=== PATIENT | female | born 2000 | race Hispanic/Latino ===

== ENCOUNTER 2025-03-30 11:50 | Emergency (ER) | payer SELFPAY ==
--- OUTSIDE RECORDS SUMMARY | 2025-03-30 11:55 | XMS REPORT | Continuity of Care Document ---
Author Name Unknown Address [address] [facility] [place] [address] [facility] Address [address] [facility] [address] [place] [address] Care Team Providers Care Construction Supervisor Name Role Phone NONE, NONE Primary Care Physician Unavailab Sparks, DR MENA Attending Clinician Unavailab Sparks, DR MENA Attending Clinician Unavailab CEDRIC Mehta Attending Clinician Unavailable CEDRIC SONG Attending Clinician [phone] ELAINE MOLINA Attending Clinician Unavailable ELAINE MOLINA Attending Clinician [phone] MALISSA CHIANG Attending Clinician UnavailCIRA Mccoy Attending Clinician Unavailable NELLY, DR MALISSA García Attending Clinician Unavail able NELLY, DR MALISSA García Attending Clinician Unavail able ALISON, DR BAILEY Attending Clinician Unavailable ALISON, DR BAILEY Attending Clinician Unavailable DR JOSÉ OKEEFE Attending Clinician Unavaila amalia GUAJARDO, DR Mary CORADO Attending Clinician Ruby NAVARRO, DR COLBY Attending Clinician Unavailable TROY, DR CSOOBY GO Attending Clinici fred GILMORE, DR DANNY THAKKAR Attending Clinician Unakasey MUKHERJEE, DR DOWNING Attending Clinician Unavailable GOLDEN, DR VALDEZ Attending Clinician Unavailable RONALDO, DR CARMONA Attending Clinician Unavailable DILLAN, DR MEDINA Attending Clinician Unavailable DR TRINA CLINTON Admitting Clinician Unavailab DR MALISSA Burch Admitting Clinician UnavailDR MALISSA Serna Admitting Clinician Unavail able ALISON, DR BAILEY Admitting Clinician Unavailable MALDONADO, DR JOSÉ Royal Admitting Clinician Unavailjose daniel GUAJARDO, DR Mary CORADO Admitting Clinician Ruby NAVARRO, DR COLBY Admitting Clinician Unavailable TROY, DR SCOOBY GO Admitting Clinici an Unavailable GILMORE, DR DANNY THAKKAR Admitting Clinician Marielos MUKHERJEE, DR DOWNING Admitting Clinician Unavailable BA, DR VALDEZ Admitting Clinician Unavailable RONALDO, DR CARMONA Admitting Clinician Unavailable DILLAN, DR MEDINA Admitting Clinician Unavailable Payers Payer Name Policy Type Policy Number Effective Date Expirati on Date Source 1000 [id number] 2025 00:00:00 0775 [id number] 2022 00:00:00 Allergies, Adverse Reactions, Alerts Allergy Name Allergy Type Status Severity Reaction(s) Onset Date Inactive Date Treating Clinician Comments Source NKDA DA Active Unknown 02-25 00:00: 00 [facility] No Known Allergie s DA Active [facility] ALLERGIE S NOT ON FILE SYSTEMIC Active MHEOUT ALLERGIE S NOT ON FILE SYSTEMIC Active MHEOUT ALLERGIE S NOT ON FILE SYSTEMIC Active MHEOUT Family History Family Member Diagnosis Comments Start Date Stop Date Sourc e Mother Hypertension 2024-05-09 00:00:00 11-21-24 00:00:00 [facility] Social History Social Habit Start Date Stop Date Quantity Comments Source Health-related Behavior 2024-05-17 00:00:00 [facility] Tobacco use and exposure (observable entity) 2024-05-09 00:00:00 : No Details Available Quantity Details - : No Details Available [facility] intake [facility] Smoking Status Start Date Stop Date Source Unknown if ever smoked [facility] Medications Ordered Medication Name Filled Medication Name Start Date Stop Date Current Medication? Ordering Clinician Indication Dosage Frequency Signature (SIG) Comments Components Source norethindro ne (contracept shahrzad) 0.35 mg tablet 09-20 00:00: 00 No 1{table t} Q1D take 1 tablet by oral route every day [facility] metronidazo le 500 mg tablet 2023-08 0 00:00: 00 06-13 00:00 :00 No 1{table t} Q12H take 1 tablet by oral route every 12 hours [facility] metronidazo le 500 mg tablet 05-09 00:00: 00 05-15 00:00 :00 No 1{table t} Q12H take 1 tablet by oral route every 12 hours [facility] Vital Signs Vital Name Observation Time Observation Value Comments S ource Height 2025-02-04 10:50:00 152.4 CM Weight 2025-02-04 10:50:00 56 KG Height 2025-02-04 10:50:00 152.4 CM Weight 2025-02-04 10:50:00 56 KG Height 2025-02-04 10:50:00 152.4 CM Weight 2025-02-04 10:50:00 56 KG Body height 2024-05-09 14:56:00 149.86 cm [facility] Body Weight 2024-05-09 14:56:00 55.883 kg [facility] Systolic 2024-05-09 14:56:00 107 mm[Hg] [facility] Diastolic 2024-05-09 14:56:00 73 mm[Hg] [facility] Heart Rate 2024-05-09 14:56:00 81 /min [facility] Body Temperature 2024-05-09 14:56:00 36.39 Aleksandra [facility] Respiratory rate 2024-05-09 14:56:00 18 /min [facility] Body mass index 2024-05-09 14:56:00 24.88 kg/m2 [facility] SaO2 % BldA PulseOx 2024-05-09 14:56:00 98 /min [facility] Height 2023-07-06 02:25:00 149.86 CM Weight 2023-07-06 02:25:00 60.2 KG Height 2023-06-26 17:40:00 149.86 CM Weight 2023-06-26 17:40:00 59 KG Height 2023-06-26 17:40:00 149.86 CM Weight 2023-06-26 17:40:00 59 KG Height 2022-11-30 13:29:00 157.48 CM Weight 2022-11-30 13:29:00 120 KG Weight 2022-08-23 06:13:00 55.33 KG Height 2022-06-17 20:48:00 149.86 CM Weight 2022-06-17 20:48:00 52.16 KG Height 2021-02-13 16:47:00 149.86 CM Weight 2021-02-13 16:47:00 52.61 KG Height 2020-02-11 05:08:00 149.86 CM Weight 2020-02-11 05:08:00 63.04 KG Weight 2019-08-28 23:07:00 48.65 KG Height 2019-08-28 23:07:00 149.86 [facility] Systolic 2024-09-20 07:55:00 104 mm[Hg] [facility] Diastolic 2024-09-20 07:55:00 68 mm[Hg] [facility] Heart Rate 2024-09-20 07:55:00 90 /min [facility] Body mass index 2024-09-20 07:55:00 26.09 kg/m2 [facility] Body height 2024-09-20 07:55:00 149.86 cm [facility] Body Weight 2024-09-20 07:55:00 58.604 kg [facility] Body height 2024-06-07 15:32:00 149.86 cm [facility] Body Weight 2024-06-07 15:32:00 56.699 kg [facility] Systolic 2024-06-07 15:32:00 107 mm[Hg] [facility] Diastolic 2024-06-07 15:32:00 72 mm[Hg] [facility] Heart Rate 2024-06-07 15:32:00 89 /min [facility] Body Temperature 2024-06-07 15:32:00 36.22 Aleksandra [facility] Respiratory rate 2024-06-07 15:32:00 18 /min [facility] Body mass index 2024-06-07 15:32:00 25.25 kg/m2 [facility] SaO2 % BldA PulseOx 2024-06-07 15:32:00 98 /min [facility] Body height 2024-05-09 14:56:00 149.86 cm [facility] Body Weight 2024-05-09 14:56:00 55.883 kg [facility] Systolic 2024-05-09 14:56:00 107 mm[Hg] [facility] Diastolic 2024-05-09 14:56:00 73 mm[Hg] [facility] Heart Rate 2024-05-09 14:56:00 81 /min [facility] Body Temperature 2024-05-09 14:56:00 36.39 Aleksandra [facility] Respiratory rate 2024-05-09 14:56:00 18 /min [facility] Body mass index 2024-05-09 14:56:00 24.88 kg/m2 [facility] SaO2 % BldA PulseOx 2024-05-09 14:56:00 98 /min [facility] Procedures Procedure Date / Time Performed Performing Clinician Source PT-FOCUSED HLTH RISK ASSMT 2024-09-20 00:00:00 [facility] URINE TEST 2024-06-07 00:00:00 [facility] OFFICE/OUTPATIENT VISIT EST 2024-06-07 00:00:00 [facility] SYST BP LT 130 MM HG 2024-06-07 00:00:00 [facility] DIAST BP <80 MM HG 2024-06-07 00:00:00 [facility] CURRENT TOBACCO SMOKER 2024-06-07 00:00:00 [facility] WEIGHT RECORD 2024-06-07 00:00:00 [facility] BODY MASS INDEX DOCD 2024-06-07 00:00:00 [facility] CYTOPATH C/V AUTO FLUID REDO 2024-05-09 00:00:00 [facility] PREV VISIT NEW AGE 18-39 2024-05-09 00:00:00 [facility] URINE TEST 2024-05-09 00:00:00 [facility] PREV VISIT NEW AGE 18-39 2024-05-09 00:00:00 [facility] URINE TEST 2024-05-09 00:00:00 [facility] ACUTE HEPATITIS PANEL 2024-05-09 00:00:00 [facility] TRICHOMONAS VAGIN DIR PROBE 2024-05-09 00:00:00 [facility] SYPHILIS TEST NON-TREP QUAL 2024-05-09 00:00:00 [facility] HIV-1 AG W/HIV-1 & HIV-2 AB 2024-05-09 00:00:00 [facility] DELIVERY PRODUCTS OF CONCEPTION EXT 2020-02-11 00:00:00 [facility] REPAIR PERINEUM MUSCLE OPEN 2020-02-11 00:00:00 [facility] DRAIN AMNIO FLUID TX POC MILVIA/ART OP 2020-02-11 00:00:00 [facility] Encounters Start Date/Time End Date/Time Encounter Type Admission Type Attending Clinicians Care Facility Care Department Encounter ID Source 2025-02-04 10:49:00 2025-02-04 14:17:00 Outpatient [facility] [id number] [facility] 2025-02-04 10:49:00 2025-02-04 14:17:00 [facility] [id number] [facility] 2025-02-04 10:49:00 2025-02-04 10:49:00 [facility] [id number] [facility] 2024-10-26 13:33:00 2024-10-26 13:33:00 Outpatient CEDRIC SONG [facility] [id number] [facility] 2024-10-26 13:33:00 2024-10-26 13:33:00 Outpatient CEDRIC SONG [facility] [id number] [facility] 2024-09-20 07:45:00 2024-09-20 07:45:00 Outpatient CEDRIC SONG [facility] [id number] [facility] 2024-09-20 07:45:00 2024-09-20 07:45:00 Outpatient CEDRIC SONG [facility] [id number] [facility] 2024-06-07 15:45:00 2024-06-07 15:45:00 Outpatient ELAINE MOLINA [facility] [id number] [facility] 2024-06-07 15:45:00 2024-06-07 15:45:00 OFFICE/OUT PATIENT VISIT EST ELAINE MOLINA [facility] [id number] [facility] 2024-05-31 16:22:00 2024-05-31 16:22:00 Outpatient ELAINE MOLINA [facility] [id number] [facility] 2024-05-31 16:22:00 2024-05-31 16:22:00 Outpatient ELAINE MOLINA [facility] [id number] [facility] 2024-05-29 08:42:00 2024-05-29 08:42:00 Outpatient ELAINE MOLINA [facility] [id number] [facility] 2024-05-29 08:42:00 2024-05-29 08:42:00 Outpatient ELAINE MOLINA [facility] [id number] [facility] 2024-05-17 07:28:00 2024-05-17 07:28:00 Outpatient ELAINE MOLINA [facility] [id number] [facility] 2024-05-17 07:28:00 2024-05-17 07:28:00 Outpatient ELAINE MOLINA [facility] [id number] [facility] 2024-05-09 14:45:00 2024-05-09 14:45:00 Outpatient ELAINE MOLINA [facility] [id number] [facility] 2024-05-09 14:45:00 2024-05-09 14:45:00 PREV VISIT NEW AGE 18-39 ELAINE MOLINA [facility] [id number] [facility] 2024-03-01 17:31:00 2024-03-01 17:31:00 Emergency E [facility] [id number] [facility] 2024-02-28 14:45:14 2024-02-28 15:21:26 Outpatient Elective [facility] [id number] [id number] 2023-07-06 02:53:00 2023-07-06 02:53:00 Emergency E MALISSA [facility]AS [facility] [id number] [facility] 2023-06-26 17:36:00 2023-06-26 20:13:00 Emergency E UDU, LYNN ROSAS, LYNN [facility] [id number] [facility] 2023-06-26 17:36:00 2023-06-26 20:13:00 Emergency E LYNN ROSAS [facility] [id number] [facility] 2022-11-30 13:21:00 2022-11-30 15:01:00 Emergency E JOSÉ OKEEFE [facility] [id number] [facility] 2022-08-23 04:34:00 2022-08-23 06:40:00 Emergency E Mary GUAJARDO [facility] [id number] [facility] 2022-06-17 19:33:00 2022-06-17 22:47:00 Emergency E LASHA NAVARRO [facility] [id number] [facility] 2021-02-13 16:47:00 2021-02-13 19:00:00 Emergency E SCOOBY SIMMONS [facility] [id number] [facility] 2020-02-11 05:00:00 2020-02-13 11:50:00 Inpatient C DANNY GILMORE [facility] [id number] [facility] 2019-08-28 22:52:00 2019-08-29 00:05:00 [facility] [id number] [facility] 2019-07-11 13:05:00 2019-07-12 15:20:00 Emergency E SALINA MUKHERJEE [facility] [id number] [facility] 2019-05-15 06:10:00 2019-05-15 07:39:00 Emergency E JOSÉ MIGUEL FRANKS [facility] [id number] [facility] 2017-11-07 08:32:00 2017-11-07 10:00:00 Emergency E KRISTINE HIGGINS [facility] [id number] [facility] 2017-08-12 08:18:00 2017-08-12 11:58:00 Emergency E ADAM GRIMALDO [facility] [id number] [facility] Results Test Description Test Time Test Comments Results Result Co mments Source CPK *WW*2025-02-04 12:01:00* Test Item Value Reference Range Interpretation Comme nts CPK (test code = 32A) 127 IU/L 34-145 LIPASE SERUM WW2025-02-04 12:01:00* Test Item Value Reference Range Interpretation Comme nts LIPASE (test code = 60A) 32 IU/L 12-53 URINALYSIS WITH MICRO *WW*2025-02-04 11:52:00* Test Item Value Reference Range Interpretation Comme nts COLOR (test code = COLU) DK YELLOW YELLOW A CLARITY (test code = CLA) TURBID CLEAR A GLUCOSE UR (test code = UA GLUCOSE) NEGATIVE NEGATIVE BILI UR (test code = BILE) 1+ NEGATIVE A KETONES UR (test code = FRANCIE) 2+ NEGATIVE A SP GRAVITY (test code = SPGR) 1.059 1.005-1.030 H PH UR (test code = PH) 6.5 4.5-8.0 PROTEIN UR (test code = PU) 3+ NEGATIVE A UROBIL UR (test code = UROQ) 1.0 EU/dL 0.2-1.0 NITRITE UR (test code = NITRITE) NEGATIVE NEGATIVE BLOOD UR (test code = UA BLOOD) 3+ NEGATIVE A LEUK ES UR (test code = LEUK) 1+ NEGATIVE A WBC UR (test code = UWBC) 4 /HPF 0-5 RBC UR (test code = URBC) >100 /HPF 0-2 H EPITH UR (test code = UEPC) FEW /LPF FEW BACTERIA UR (test code = UBACT) FEW /HPF NONE A CAST UR (test code = CAST) /LPF NONE CRYSTAL UR (test code = CRYU) / LPF NONE MUCUS UR (test code = MUC) / HPF NONE AMORPH UR (test code = AISHA) / HPF NONE TRICH UR (test code = UTRICH) /HPF NONE YEAST UR (test code = UY) /HPF NONE SPERM UR (test code = USPERM) /HPF NONE URINE MONOCLONAL 2025-02-04 11:49:00* Test Item Value Reference Range Interpretation Comme nts PREG UR (test code = PGU) NEGATIVE NEGATIVE CBC (INCLUDES AUTOMATED DIFFERENTIAL)*[id number] 11:47:00* Test Item Value Reference Range Interpretation Comme nts WBC (test code = WBC) 10.6 10\S\3/uL 4.5-11.0 RBC (test code = RBC) 3.98 10\S\6/uL 4.30-5.70 L HGB (test code = HBG) 11.7 g/dL 12.0-15.5 L HCT (test code = HCT) 35.0 % 35.0-44.0 MCV (test code = MCV) 87.9 fL 81.0-99.0 MCH (test code = MCH) 29.4 pg 27.0-31.0 MCHC (test code = MCHC) 33.4 g/dL 32.0-36.0 RDW (test code = RDW) 12.5 % 11.5-14.5 PLT (test code = PLT) 322 10\S\3/uL 130-400 MPV (test code = MPV) 9.9 fL 9.4-12.4 NEUTROP # (test code = NE#) 6.6 10\S\3/uL 1.6-8.0 LYMPH # (test code = LY#) 3.1 10\S\3/uL 1.1-3.5 MONOCYTE # (test code = MO#) 0.7 10\S\3/uL 0.0-1.1 EOSINOPH # (test code = EO#) 0.1 10\S\3/uL 0.0-0.7 BASOPHIL # (test code = BA#) 0.0 10\S\3/uL 0.0-0.3 IG # (test code = IG#) 0.03 10\S\3/uL 0.00-0.06 NRBC # (test code = NRBC#) 0.00 10\S\3/uL 0.00-0.01 NEUTROPH % (test code = NE%) 62.7 % 35.0-73.0 LYMPH % (test code = LY%) 29.2 % 20.0-55.0 MONO % (test code = MO%) 6.5 % 2.5-10.0 EOSINOPH % (test code = EO%) 0.9 % 0.0-5.0 BASOPHIL % (test code = BA%) 0.4 % 0.0-2.0 IG % (test code = IG%) 0.3 % 0.0-0.8 NRBC% (test code = NRBC%) 0.0 % 0.0-0.2 MANDIFF (test code = WMDIFF) NO NO RBC MORPH (test code = WRBCMOR) NORMAL Panel Description: IGP, CtNg, rfx Aptima HPV [id number] 19:08:00* Test Item Value Reference Range Interpretation Comme [facility] (test code = 49548-2) RNILM,RECR NEGATIVE FOR INT RAEPITHELIAL LESION OR MALIGNANCY.REACTIVE CELLULAR CHANGES AND/OR REPAIR ARE PRESENT.Performed by:[facility] Cytology (;T) PERFOR (test code = 36757-8) Comment Stephanie Salazar, Client Analyst (ASCP)Performed by:[facility] Cytology (;T) SIGNED (test code = ) Comment Art Arredondo MD, PathologistPerformed by:[facility] Cytology (;T) IGLBP (test code = 26603-0) TNP The Thin Prep(R) Advertising Editor was unable to read this specimen. Thereforea manual review was performed.Performed by:[facility] Cytology (;T) Chlamydia, Nuc. Acid Amp (test code = 43559-9) Negative Negative Gonococcus, Nuc. Acid Amp (test code = 27177-5) Negative Negative [facility] Description: Vaginitis/Vaginosis, DNA [id number] 18:02:00 * Test Item Value Reference Range Interpretation Comme nts Katharina species (test code = 45237-6) Negative Negative Gardnerella vaginalis (test code = 6410-5) Positive Negative A Trichomonas vaginalis (test code = 6568-0) Negative Negative [facility] Description: NuSwab VG, [id number] 04:47:00* Test Item Value Reference Range Interpretation Comme nts Atopobium vaginae (test code = 32130-6) Moderate - 1 BVAB 2 (test code = 25434-5) Low - 0 Megasphaera 1 (test code = 27434-7) Low - 0 Calculate total score by adding the 3 individual bacterialvaginosis (BV) marker scores together. Total score isinterpreted as follows:Total score 0-1: Indicates the absence of BV.Total score 2: Indeterminate for BV. Additional clinical data should be evaluated to establish a diagnosis.Total score 3-6: Indicates the presence of BV.Performed by:[facility] [place] ([facility]) Katharina albicans, MARISOL (test code = 99864-2) Negative Negative Katharina glabrata, MARISOL (test code = 51349-1) Negative Negative Trich vag by MARISOL (test code = 60633-3) Negative Negative HSV 1 MARISOL (test code = 07740-8) Negative Negative HSV 2 MARISOL (test code = 19744-2) Negative Negative [facility] Description: Acute hepatitis 2000 panel - [id number] 08:47:00* Test Item Value Reference Range Interpretation Comme nts Hep A Ab, IgM (test code = 85934-5) Negative Negative A negative anti- HAV IgM result suggests no recent or currentHAV infection.Performed by:Christina Dozier (HD) HBsAg Screen (test code = 5196-1) Negative Negative Hep B Core Ab, IgM (test code = 68551-9) Negative Negative HCV Ab (test code = 88492-8) Non Reactive Non Reactive [facility] Description: Interpretation:2024-05-10 08:47:00* Test Item Value Reference Range Interpretation Comme nts Interpretation: (test code = 03327-1) Comment Not infected wit h HCV unless early or acute infection issuspected (which may be delayed in an immunocompromisedindividua l), or other evidence exists to indicate HCV infection.Performed by:[facility] () [facility] Description: RPR, Rfx Qn RPR/Confirm [id number] 08:13:00* Test Item Value Reference Range Interpretation Comme nts RPR (test code = 34902-2) Non Reactive Non Reactive [facility] CHLAMYDIA EXAM *WW*2024-03-05 09:34:00* Test Item Value Reference Range Interpretation Comme nts CHLAMYDIA TRACHOMATIS (test code = 36699530) DETECTED NOT DETECTED A If results do n ot correlate with clinical findings,testing using an alternate molecular target whichamplifies different genetic sequences can beperformed on the same sample for result confirmationwithin 7 days of sample receipt or per performinglaboratory specimen retention policy. Alternatetarget testing is available; 48163 (C. trachomatis)or 15794 (N. gonorrhoeae). NEISSERIA GONORRHOEAE (test code = 73989247) NOT DETECTED NOT DETECTED Endnote (test code = 30309828) The analytical performance characteristics of thisassay, when used to test SurePath(TM) specimens have beendetermined by [employer]. The modifications havenot been cleared or approved by the FDA. This assay hasbeen validated pursuant to the CLIA regulations and isused for clinical purposes.For additional information, please refer tohttps://education.[employer].com/faq/FAQ15 4(This link is being provided for information/educational purposes only.)TEST PERFORMED AT:[facility] [employer] [address] [address] Eliz HAYNES M.D. URINALYSIS WITH MICRO *WW*2024-03-01 18:16:00* Test Item Value Reference Range Interpretation Comme nts COLOR (test code = COLU) YELLOW YELLOW CLARITY (test code = CLA) SLT HAZY CLEAR A GLUCOSE UR (test code = UA GLUCOSE) NEGATIVE NEGATIVE BILI UR (test code = BILE) NEGATIVE NEGATIVE KETONES UR (test code = FRANCIE) NEGATIVE NEGATIVE SP GRAVITY (test code = SPGR) 1.022 1.005-1.030 PH UR (test code = PH) 6.5 4.5-8.0 PROTEIN UR (test code = PU) NEGATIVE NEGATIVE UROBIL UR (test code = UROQ) 1.0 EU/dL 0.2-1.0 NITRITE UR (test code = NITRITE) NEGATIVE NEGATIVE BLOOD UR (test code = UA BLOOD) NEGATIVE NEGATIVE LEUK ES UR (test code = LEUK) 2+ NEGATIVE A WBC UR (test code = UWBC) 5 /HPF 0-5 RBC UR (test code = URBC) 2 /HPF 0-2 EPITH UR (test code = UEPC) FEW /LPF FEW BACTERIA UR (test code = UBACT) FEW /HPF NONE A CAST UR (test code = CAST) /LPF NONE CRYSTAL UR (test code = CRYU) / LPF NONE MUCUS UR (test code = MUC) / HPF NONE AMORPH UR (test code = AISHA) / HPF NONE TRICH UR (test code = UTRICH) /HPF NONE YEAST UR (test code = UY) /HPF NONE SPERM UR (test code = USPERM) /HPF NONE URINE MONOCLONAL *WW*2024-03-01 18:08:00* Test Item Value Reference Range Interpretation Comme nts PREG UR (test code = PGU) NEGATIVE NEGATIVE DIRECT STREP GROUP [id number] 14:11:00* Test Item Value Reference Range Interpretation Comme nts Direct Exam (test code = DE3) NEGATIVE FOR STREP A ANTIGEN Isolate 1 (test code = ISO1) BETA HEMOLYTIC STREPTOCOCCUS GROUP A ISOLATED SARS-CoV (RAPID ANTIGEN) [id number] 18:40:00* Test Item Value Reference Range Interpretation Comme nts SARS-CoV (ANTIGEN) (test code = COVAG) NEGATIVE NEGATIVE COVID AG (test code = COVAGC) This test has been marketed under the FDA Emergency Use Authorization (EUA) to meet challenges of the COVID-19 pandemic. The validation standards normally enforced by the FDA and the [employer] [place] [employer] (CAP) are more stringent than those required for this test. Therefore, the result should be interpreted with caution and close attention to other clinical and epidemiological data DIRECT INFLUENZA A AND B [id number] 18:40:00* Test Item Value Reference Range Interpretation Comme nts Direct Exam (test code = DE3) PRESUMPTIVE NEGATIVE FOR THE PRESENCE OF INFLUENZA ANTIGEN SARS-CoV (RAPID ANTIGEN) [id number] 14:56:00* Test Item Value Reference Range Interpretation Comme nts SARS-CoV (ANTIGEN) (test code = COVAG) NEGATIVE NEGATIVE COVID AG (test code = COVAGC) This test has been marketed under the FDA Emergency Use Authorization (EUA) to meet challenges of the COVID-19 pandemic. The validation standards normally enforced by the FDA and the [employer] [place] Path[employer] (CAP) are more stringent than those required for this test. Therefore, the result should be interpreted with caution and close attention to other clinical and epidemiological data DIRECT STREP GROUP [id number] 14:50:00* Test Item Value Reference Range Interpretation Comme nts Direct Exam (test code = DE3) NEGATIVE FOR STREP A ANTIGEN DIRECT INFLUENZA A AND B [id number] 14:49:00* Test Item Value Reference Range Interpretation Comme nts Direct Exam (test code = DE3) PRESUMPTIVE NEGATIVE FOR THE PRESENCE OF INFLUENZA ANTIGEN URINE [id number] 08:50:00* Test Item Value Reference Range Interpretation Comme nts Culture Observations (test code = COB1) THREE OR MORE SPECIES OF BACTERIA ISOLATED. PROBABLE CONTAMINATION. Culture Observations (test code = COB17) IDENTIFICATION AND SUSCEPTIBILITY NOT INDICATED. RECOLLECTION RECOMMENDED Isolate 1 (test code = ISO1) YEAST A URINE MONOCLONAL 2022-08-23 05:53:00* Test Item Value Reference Range Interpretation Comme nts PREG UR (test code = PGU) NEGATIVE NEGATIVE URINALYSIS WITH MICRO 2022-08-23 05:28:00* Test Item Value Reference Range Interpretation Comme nts COLOR (test code = COLU) YELLOW YELLOW CLARITY (test code = CLA) CLOUDY CLEAR A GLUCOSE UR (test code = UA GLUCOSE) NEGATIVE NEGATIVE BILI UR (test code = BILE) NEGATIVE NEGATIVE KETONES UR (test code = FRANCIE) NEGATIVE NEGATIVE SP GRAVITY (test code = SPGR) >=1.030 1.005-1.030 PH UR (test code = PH) 5.5 4.5-8.0 PROTEIN UR (test code = PU) 1+ NEGATIVE A UROBIL UR (test code = UROQ) 0.2 EU/dL 0.2-1.0 NITRITE UR (test code = NITRITE) NEGATIVE NEGATIVE BLOOD UR (test code = UA BLOOD) 2+ NEGATIVE A LEUK ES UR (test code = LEUK) 3+ NEGATIVE A WBC UR (test code = UWBC) 25 /HPF 0-5 H RBC UR (test code = URBC) 5 /HPF 0-2 H EPITH UR (test code = UEPC) MODERATE /LPF FEW A BACTERIA UR (test code = UBACT) MODERATE /HPF NONE A CAST UR (test code = CAST) /LPF NONE CRYSTAL UR (test code = CRYU) / LPF NONE MUCUS UR (test code = MUC) FEW / HPF NONE A AMORPH UR (test code = AISHA) / HPF NONE TRICH UR (test code = UTRICH) /HPF NONE YEAST UR (test code = UY) FEW /HPF NONE A SPERM UR (test code = USPERM) /HPF NONE DIRECT STREP GROUP [id number] 10:48:00* Test Item Value Reference Range Interpretation Comme nts Culture Observations (test code = COB1) NO BETA HEMOLYTIC STREPTOCOCCUS ISOLATED Direct Exam (test code = DE3) NEGATIVE FOR STREP A ANTIGEN SARS-CoV (RAPID ANTIGEN) [id number] 21:25:00* Test Item Value Reference Range Interpretation Comme nts SARS-CoV (ANTIGEN) (test code = COVAG) NEGATIVE NEGATIVE COVID AG (test code = COVAGC) This test has been marketed under the FDA Emergency Use Authorization (EUA) to meet challenges of the COVID-19 pandemic. The validation standards normally enforced by the FDA and the [employer] [place] [employer] (CAP) are more stringent than those required for this test. Therefore, the result should be interpreted with caution and close attention to other clinical and epidemiological data DIRECT INFLUENZA A AND B [id number] 21:20:00* Test Item Value Reference Range Interpretation Comme nts Direct Exam (test code = DE3) POSITIVE FOR INFLUENZA A VIRAL ANTIGEN LIVER [id number] 18:32:00* Test Item Value Reference Range Interpretation Comme nts BILI TOTAL (test code = 11A) 0.3 mg/dL 0.2-1.0 BILI DIRCT (test code = 12A) <0.1 mg/dL 0.0-0.2 PROTEIN (test code = 07D) 8.0 g/dL 6.4-8.2 ALBUMIN (test code = 08D) 4.0 g/dL 3.5-4.8 GLOBULIN (test code = GLB) 4.0 g/dL 1.5-3.8 H ALB/GLOB (test code = AGRR) 1.0 1.0-2.6 ALK PHOS (test code = 35A) 86 IU/L 42-121 AST (test code = 30A) 16 IU/L See_Comment [Automated [employer]acher / [employer] ge] The system which generated this result transmitted reference range: <=42. The reference range was not used to interpret this result as normal/abnormal. ALT (test code = 31A) 25 IU/L See_Comment [Automated [employer]acher / [employer] [facility]] The system which generated this result transmitted reference range: <=78. The reference range was not used to interpret this result as normal/abnormal. U/S <14 [id number] 18:29:22 [facility] : 2000 Sex: FPelvic ultrasoun dHistory: First trimester . Vaginal bleeding.Technique and Findings: Garcia scale, color andpulsed Doppler imaging were utilized. No comparison studies are available.The uterus measures 8.5 x4.4 x 5.3 cm. No definite intrauterine is seen. The endometrium is heterogeneous.The right ovary measures 2.6 x 1.8 x 2.3 cm. The left ovary measures 2.4 x 1.4 x 1.9 cm and demonstrates no f ocal lesions. A normal flow pattern is seen in both ovaries.There is no evidence of free fluid within the pelvis.Impression:Exam findings limited by the absence of transvaginal imaging as patient refused transvaginal imaging.No intrauterine is identified. Recommend correlation with serialbeta hCG and close interval follow-up with sonography to document intrauterine and rule out ectopic.Electronically signed by: Sally Graham MD 02/13/2021 6:29 PM CDT [id number] WITH [id number] 18:13:00* Test Item Value Reference Range Interpretation Comme nts COLOR (test code = COLU) YELLOW YELLOW CLARITY (test code = CLA) CLOUDY CLEAR A GLUCOSE UR (test code = UA GLUCOSE) NEGATIVE NEGATIVE BILI UR (test code = BILE) NEGATIVE NEGATIVE KETONES UR (test code = FRANCIE) NEGATIVE NEGATIVE SP GRAVITY (test code = SPGR) 1.031 1.005-1.030 H PH UR (test code = PH) 6.5 4.5-8.0 PROTEIN UR (test code = PU) TRACE NEGATIVE A UROBIL UR (test code = UROQ) 1.0 EU/dL 0.2-1.0 NITRITE UR (test code = NITRITE) NEGATIVE NEGATIVE BLOOD UR (test code = UA BLOOD) 3+ NEGATIVE A LEUK ES UR (test code = LEUK) 1+ NEGATIVE A WBC UR (test code = UWBC) 6 /HPF 0-5 H RBC UR (test code = URBC) 100 /HPF 0-2 H EPITH UR (test code = UEPC) FEW /LPF FEW BACTERIA UR (test code = UBACT) NONE /HPF NONE CAST UR (test code = CAST) /LPF NONE CRYSTAL UR (test code = CRYU) / LPF NONE MUCUS UR (test code = MUC) / HPF NONE AMORPH UR (test code = AISHA) / HPF NONE TRICH UR (test code = UTRICH) /HPF NONE YEAST UR (test code = UY) /HPF NONE SPERM UR (test code = USPERM) /HPF NONE BETA HCG QUANTITATIVE [id number] 18:02:00* Test Item Value Reference Range Interpretation Comme nts BHCG QUANT (test code = A17) 39.00 mIU/mL BHCGQ (test code = BHCQ) QUANTITATIVE BHCG RESULT INTERPRETATION --- APPROXIMATE APPROXIMATE GESTATIONAL AGE HCG RANGE (WEEKS) (mIU/mL) - 0.2 - 1 5 - 50 1 - 2 50 - 500 2 - 3 100 - 5,000 3 - 4 500 - 10,000 4 - 5 1,000 - 50,000 5 - 6 10,000 - 100,000 6 - 8 15,000 - 200,000 8 - 12 10,000 - 100,000 --- BASIC METABOLIC [id number] 17:57:00* Test Item Value Reference Range Interpretation Comme nts GLUCOSE (test code = 06D) 85 mg/dL 75-100 SODIUM (test code = 01A) 139 mmol/L 136-145 POTASSIUM (test code = 01B) 3.6 mmol/L 3.6-5.1 CHLORIDE (test code = 04A) 104 mmol/L 98-107 CO2 (test code = 02A) 26 mmol/L 22-32 ANION GAP (test code = ANG) 12.6 mmol/L BUN (test code = 05D) 12 mg/dL 7-18 CREATININE (test code = 03E) 0.6 mg/dL 0.4-1.1 GFR (test code = GFR) 129 mL/min/1.73m\S\2 See_Comment [Automated message] The system which generated this result transmitted reference range: >=90. The reference range was not used to interpret this result as normal/abnormal. GFR (test code = GFRAA) 150 mL/min/1.73m\S\2 See_Comment [Automated message] The system which generated this result transmitted reference range: >=90. The reference range was not used to interpret this result as normal/abnormal. EGFR (test code = EGFR) eGFR BY CKD-EPI CALCULATION IS NOT RECOMMENDED FOR PATIENTS UNDER 18 YEARS OF AGE. BUN/CREA (test code = BCR) 20 12-20 CALCIUM (test code = 09D) 9.2 mg/dL 8.3-9.5 CBC (INCLUDES AUTOMATED DIFFERENTIAL)2021-02-13 17:50:00* Test Item Value Reference Range Interpretation Comme nts WBC (test code = WBC) 12.7 10\S\3/uL 4.5-11.0 H RBC (test code = RBC) 4.08 10\S\6/uL 4.30-5.70 L HGB (test code = HBG) 12.2 g/dL 12.0-15.5 HCT (test code = HCT) 36.6 % 35.0-44.0 MCV (test code = MCV) 89.7 fL 81.0-99.0 MCH (test code = MCH) 29.9 pg 27.0-31.0 MCHC (test code = MCHC) 33.3 g/dL 32.0-36.0 RDW (test code = RDW) 12.7 % 11.5-14.5 PLT (test code = PLT) 341 10\S\3/uL 130-400 MPV (test code = MPV) 9.9 fL 9.4-12.4 NEUTROP # (test code = NE#) 8.3 10\S\3/uL 1.6-8.0 H LYMPH # (test code = LY#) 3.1 10\S\3/uL 1.1-3.5 MONOCYTE # (test code = MO#) 0.8 10\S\3/uL 0.0-1.1 EOSINOPH # (test code = EO#) 0.5 10\S\3/uL 0.0-0.7 BASOPHIL # (test code = BA#) 0.0 10\S\3/uL 0.0-0.3 IG # (test code = IG#) 0.04 10\S\3/uL 0.00-0.06 NRBC # (test code = NRBC#) 0.00 10\S\3/uL 0.00-0.01 NEUTROPH % (test code = NE%) 65.0 % 35.0-73.0 LYMPH % (test code = LY%) 24.3 % 20.0-55.0 MONO % (test code = MO%) 6.0 % 2.5-10.0 EOSINOPH % (test code = EO%) 4.1 % 0.0-5.0 BASOPHIL % (test code = BA%) 0.3 % 0.0-2.0 IG % (test code = IG%) 0.3 % 0.0-0.8 NRBC% (test code = NRBC%) 0.0 % 0.0-0.2 MANDIFF (test code = MDIFF) NO RBC MORPH (test code = RBCMOR) NORMAL RUBELLA AB IGG 2020-02-12 07:03:00* Test Item Value Reference Range Interpretation Comme nts RUB AB IGG INTERP (test code = RBABINT) IMMUNE NON-IMMUNE A CBC (INCLUDES AUTOMATED DIFFERENTIAL)*[id number] 06:50:00* Test Item Value Reference Range Interpretation Comme nts WBC (test code = WBC) 16.3 10\S\3/uL 4.5-11.0 H RBC (test code = RBC) 3.68 10\S\6/uL 4.30-5.70 L HGB (test code = HBG) 10.1 g/dL 12.0-15.5 L HCT (test code = HCT) 31.6 % 35.0-44.0 L MCV (test code = MCV) 85.9 fL 81.0-99.0 MCH (test code = MCH) 27.4 pg 27.0-31.0 MCHC (test code = MCHC) 32.0 g/dL 32.0-36.0 RDW (test code = RDW) 14.1 % 11.5-14.5 PLT (test code = PLT) 320 10\S\3/uL 130-400 MPV (test code = MPV) 10.5 fL 9.4-12.4 NEUTROP # (test code = NE#) 10.0 10\S\3/uL 1.6-8.0 H LYMPH # (test code = LY#) 4.6 10\S\3/uL 1.1-3.5 H MONOCYTE # (test code = MO#) 1.0 10\S\3/uL 0.0-1.1 EOSINOPH # (test code = EO#) 0.7 10\S\3/uL 0.0-0.7 BASOPHIL # (test code = BA#) 0.1 10\S\3/uL 0.0-0.3 IG # (test code = IG#) 0.09 10\S\3/uL 0.00-0.06 H NRBC # (test code = NRBC#) 0.00 10\S\3/uL 0.00-0.01 NEUTROPH % (test code = NE%) 60.9 % 35.0-73.0 LYMPH % (test code = LY%) 28.2 % 20.0-55.0 MONO % (test code = MO%) 5.9 % 2.5-10.0 EOSINOPH % (test code = EO%) 4.0 % 0.0-5.0 BASOPHIL % (test code = BA%) 0.4 % 0.0-2.0 IG % (test code = IG%) 0.6 % 0.0-0.8 NRBC% (test code = NRBC%) 0.0 % 0.0-0.2 MANDIFF (test code = WMDIFF) NO NO RBC MORPH (test code = WRBCMOR) NORMAL HIV *WW*2020-02-11 08:26:00* Test Item Value Reference Range Interpretation Comme nts HIV-1,2 and p24 (test code = CHIV) NON-REACTIVE NON-REACTIVE SYPHILIS SCREENING WW2020-02-11 07:59:00* Test Item Value Reference Range Interpretation Comme nts T PALLIDUM AB (test code = SYPHINT) NON-REACTIVE NON-REACTIVE SYPHC (test code = SYPHC) RPR test has been updated to Treponemal Immunoassay. Interpretation of results is similar HEPATITIS B SURFACE ANTIGEN *WW*2020-02-11 07:57:00* Test Item Value Reference Range Interpretation Comme nts HBSAG (test code = HBSAG) NON-REACTIVE NON-REACTIVE SARS-CoV (RAPID ANTIGEN) 2020-02-11 07:47:00* Test Item Value Reference Range Interpretation Comme nts SARS-CoV (ANTIGEN) (test code = COVAG) NEGATIVE NEGATIVE COVID AG (test code = COVAGC) This test has been marketed under the FDA Emergency Use Authorization (EUA) to meet challenges of the COVID-19 pandemic. The validation standards normally enforced by the FDA and the [employer] [place] [employer] (CAP) are more stringent than those required for this test. Therefore, the result should be interpreted with caution and close attention to other clinical and epidemiological data URINALYSIS WITH MICRO 2020-02-11 06:42:00* Test Item Value Reference Range Interpretation Comme nts COLOR (test code = COLU) YELLOW YELLOW CLARITY (test code = CLA) SLT HAZY CLEAR A GLUCOSE UR (test code = UA GLUCOSE) NEGATIVE NEGATIVE BILI UR (test code = BILE) NEGATIVE NEGATIVE KETONES UR (test code = FRANCIE) NEGATIVE NEGATIVE SP GRAVITY (test code = SPGR) 1.020 1.005-1.030 PH UR (test code = PH) 7.0 4.5-8.0 PROTEIN UR (test code = PU) NEGATIVE NEGATIVE UROBIL UR (test code = UROQ) 0.2 EU/dL 0.2-1.0 NITRITE UR (test code = NITRITE) NEGATIVE NEGATIVE BLOOD UR (test code = UA BLOOD) NEGATIVE NEGATIVE LEUK ES UR (test code = LEUK) 1+ NEGATIVE A WBC UR (test code = UWBC) 5 /HPF 0-5 RBC UR (test code = URBC) 2 /HPF 0-2 EPITH UR (test code = UEPC) MODERATE /LPF FEW A BACTERIA UR (test code = UBACT) FEW /HPF NONE A CAST UR (test code = CAST) /LPF NONE CRYSTAL UR (test code = CRYU) / LPF NONE MUCUS UR (test code = MUC) / HPF NONE AMORPH UR (test code = AISHA) / HPF NONE TRICH UR (test code = UTRICH) /HPF NONE YEAST UR (test code = UY) /HPF NONE SPERM UR (test code = USPERM) /HPF NONE CBC (INCLUDES AUTOMATED DIFFERENTIAL)*[id number] 06:24:00* Test Item Value Reference Range Interpretation Comme nts WBC (test code = WBC) 13.0 10\S\3/uL 4.5-11.0 H RBC (test code = RBC) 3.66 10\S\6/uL 4.30-5.70 L HGB (test code = HBG) 10.2 g/dL 12.0-15.5 L HCT (test code = HCT) 31.3 % 35.0-44.0 L MCV (test code = MCV) 85.5 fL 81.0-99.0 MCH (test code = MCH) 27.9 pg 27.0-31.0 MCHC (test code = MCHC) 32.6 g/dL 32.0-36.0 RDW (test code = RDW) 13.7 % 11.5-14.5 PLT (test code = PLT) 329 10\S\3/uL 130-400 MPV (test code = MPV) 11.0 fL 9.4-12.4 NEUTROP # (test code = NE#) 8.6 10\S\3/uL 1.6-8.0 H LYMPH # (test code = LY#) 2.9 10\S\3/uL 1.1-3.5 MONOCYTE # (test code = MO#) 1.0 10\S\3/uL 0.0-1.1 EOSINOPH # (test code = EO#) 0.3 10\S\3/uL 0.0-0.7 BASOPHIL # (test code = BA#) 0.0 10\S\3/uL 0.0-0.3 IG # (test code = IG#) 0.07 10\S\3/uL 0.00-0.06 H NRBC # (test code = NRBC#) 0.00 10\S\3/uL 0.00-0.01 NEUTROPH % (test code = NE%) 66.3 % 35.0-73.0 LYMPH % (test code = LY%) 22.4 % 20.0-55.0 MONO % (test code = MO%) 7.9 % 2.5-10.0 EOSINOPH % (test code = EO%) 2.6 % 0.0-5.0 BASOPHIL % (test code = BA%) 0.3 % 0.0-2.0 IG % (test code = IG%) 0.5 % 0.0-0.8 NRBC% (test code = NRBC%) 0.0 % 0.0-0.2 MANDIFF (test code = WMDIFF) NO NO RBC MORPH (test code = WRBCMOR) NORMAL DIRECT INFLUENZA A AND B [id number] 23:50:00* Test Item Value Reference Range Interpretation Comme nts Direct Exam (test code = DE3) PRESUMPTIVE NEGATIVE FOR THE PRESENCE OF INFLUENZA ANTIGEN URINE [id number] 11:40:00* Test Item Value Reference Range Interpretation Comments Culture Observations (test code = COB1) THREE OR MORE SPECIES OF BACTERIA ISOLATED. PROBABLE CONTAMINATION. Culture Observations (test code = COB17) IDENTIFICATION AND SUSCEPTIBILITY NOT INDICATED. RECOLLECTION RECOMMENDED Culture Observations (test code = COB2) ORGANISM UNDER EVALUATION Isolate 1 (test code = ISO1) Streptococcus Group B A PENICILLIN AND AMPICILLIN ARE DRUGS OF CHOICE FOR TREATING BETA HEMOLYTIC STREPINFECTIONS. SUSCEPTIBILITY TESTING OF PENICILLINS AND OTHER BETA LACATAMSAPPROVED BY THE FDA FOR TREATING BETA HEMOLYTIC STREP INFECTIONS DOES NOT NEEDTO BE PERFORMED ROUTINELY BECAUSE NONSUSCEPTIBILE ISOLATES ARE EXTREMELY RARE. Isolate 1 (test code = ISO11) Streptococcus Group B A PENICILLIN AND AMPICILLIN ARE DRUGS OF CHOICE FOR TREATING BETA HEMOLYTIC STREPINFECTIONS. SUSCEPTIBILITY TESTING OF PENICILLINS AND OTHER BETA LACATAMSAPPROVED BY THE FDA FOR TREATING BETA HEMOLYTIC STREP INFECTIONS DOES NOT NEEDTO BE PERFORMED ROUTINELY BECAUSE NONSUSCEPTIBILE ISOLATES ARE EXTREMELY RARE. BETA HCG QUANTITATIVE SERUM *WW*2019-07-11 14:51:00* Test Item Value Reference Range Interpretation Comme nts BHCG QUANT (test code = A17) 67633.22 mIU/mL BHCGQ (test code = BHCQ) QUANTITATIVE BHCG RESULT INTERPRETATION --- APPROXIMATE APPROXIMATE GESTATIONAL AGE HCG RANGE (WEEKS) (mIU/mL) - 0.2 - 1 5 - 50 1 - 2 50 - 500 2 - 3 100 - 5,000 3 - 4 500 - 10,000 4 - 5 1,000 - 50,000 5 - 6 10,000 - 100,000 6 - 8 15,000 - 200,000 8 - 12 10,000 - 100,000 --- COMPREHENSIVE METABOLIC ROSS *WW*2019-07-11 14:38:00* Test Item Value Reference Range Interpretation Comme nts GLUCOSE (test code = 06D) 78 mg/dL 75-100 SODIUM (test code = 01A) 135 mmol/L 136-145 L POTASSIUM (test code = 01B) 3.6 mmol/L 3.6-5.1 CHLORIDE (test code = 04A) 104 mmol/L 98-107 CO2 (test code = 02A) 26 mmol/L 22-32 ANION GAP (test code = ANG) 8.6 mmol/L BUN (test code = 05D) 6 mg/dL 7-18 L CREATININE (test code = 03E) 0.5 mg/dL 0.4-1.1 BUN/CREA (test code = BCR) 13 12-20 CALCIUM (test code = 09D) 9.2 mg/dL 8.3-9.5 BILI TOTAL (test code = 11A) 0.2 mg/dL 0.2-1.0 PROTEIN (test code = 07D) 8.3 g/dL 6.4-8.2 H ALBUMIN (test code = 08D) 3.9 g/dL 3.5-4.8 GLOBULIN (test code = GLB) 4.4 g/dL 1.5-3.8 H ALB/GLOB (test code = AGRR) 0.9 1.0-2.6 L ALK PHOS (test code = 35A) 62 IU/L 42-121 AST (test code = 30A) 15 IU/L <=42 ALT (test code = 31A) 17 IU/L <=78 URINALYSIS WITH MICRO 2019-07-11 14:22:00* Test Item Value Reference Range Interpretation Comme nts COLOR (test code = COLU) YELLOW YELLOW CLARITY (test code = CLA) TURBID CLEAR A GLUCOSE UR (test code = UA GLUCOSE) NEGATIVE NEGATIVE BILI UR (test code = BILE) NEGATIVE NEGATIVE KETONES UR (test code = FRANCIE) 1+ NEGATIVE A SP GRAVITY (test code = SPGR) 1.020 1.005-1.030 PH UR (test code = PH) 7.5 4.5-8.0 PROTEIN UR (test code = PU) NEGATIVE NEGATIVE UROBIL UR (test code = UROQ) 1.0 EU/dL 0.2-1.0 NITRITE UR (test code = NITRITE) NEGATIVE NEGATIVE BLOOD UR (test code = UA BLOOD) NEGATIVE NEGATIVE LEUK ES UR (test code = LEUK) 2+ NEGATIVE A WBC UR (test code = UWBC) 14 /HPF 0-5 H RBC UR (test code = URBC) 2 /HPF 0-2 EPITH UR (test code = UEPC) MODERATE /LPF FEW A BACTERIA UR (test code = UBACT) FEW /HPF NONE A CAST UR (test code = CAST) /LPF NONE CRYSTAL UR (test code = CRYU) / LPF NONE MUCUS UR (test code = MUC) FEW / HPF NONE A AMORPH UR (test code = AISHA) / HPF NONE TRICH UR (test code = UTRICH) /HPF NONE YEAST UR (test code = UY) /HPF NONE SPERM UR (test code = USPERM) /HPF NONE CBC (INCLUDES AUTOMATED DIFFERENTIAL)*[id number] 14:14:00* Test Item Value Reference Range Interpretation Comme nts WBC (test code = WBC) 9.9 10\S\3/uL 4.5-13.0 RBC (test code = RBC) 3.97 10\S\6/uL 4.30-5.70 L HGB (test code = HBG) 11.9 g/dL 12.0-15.5 L HCT (test code = HCT) 34.7 % 35.0-44.0 L MCV (test code = MCV) 87.4 fL 81.0-99.0 MCH (test code = MCH) 30.0 pg 27.0-31.0 MCHC (test code = MCHC) 34.3 g/dL 32.0-36.0 RDW (test code = RDW) 12.1 % 11.5-14.5 PLT (test code = PLT) 308 10\S\3/uL 130-400 MPV (test code = MPV) 9.9 fL 9.4-12.4 NEUTROP # (test code = NE#) 7.1 10\S\3/uL 1.6-8.0 LYMPH # (test code = LY#) 2.1 10\S\3/uL 1.1-3.5 MONOCYTE # (test code = MO#) 0.5 10\S\3/uL 0.0-1.1 EOSINOPH # (test code = EO#) 0.2 10\S\3/uL 0.0-0.7 BASOPHIL # (test code = BA#) 0.0 10\S\3/uL 0.0-0.3 IG # (test code = IG#) 0.02 10\S\3/uL 0.00-0.06 NRBC # (test code = NRBC#) 0.00 10\S\3/uL 0.00-0.01 NEUTROPH % (test code = NE%) 71.3 % 35.0-73.0 LYMPH % (test code = LY%) 21.0 % 20.0-55.0 MONO % (test code = MO%) 5.2 % 2.5-10.0 EOSINOPH % (test code = EO%) 1.9 % 0.0-5.0 BASOPHIL % (test code = BA%) 0.4 % 0.0-2.0 IG % (test code = IG%) 0.2 % 0.0-0.8 NRBC% (test code = NRBC%) 0.0 % 0.0-0.2 MANDIFF (test code = WMDIFF) NO NO RBC MORPH (test code = WRBCMOR) NORMAL PRO TIME AND PTT *WW*2019-05-15 07:17:00* Test Item Value Reference Range Interpretation Comme nts PT (test code = TT) 13.9 s 9.8-13.6 H INR (test code = INR) 1.2 INRH (test code = INRH) SUGGESTED THERAPEUTIC RANGE FOR INR: 2.5 - 3.5 For Patients with Prosthetic Valves or Patients with recurrent Thromboembolic Events 2.0 - 3.0 For Most Other Applications PTT (test code = PTT) 29.9 s 20.2-38.0 PTTH (test code = PTTH) To monitor the effectiveness of heparin, we offer the Anti-Xa (Heparin Assay). It can be used for either unfractionated or LMW Heparin. Order Code is ANTI-XA AMYLASE AND LIPASE 2019-05-15 07:09:00* Test Item Value Reference Range Interpretation Comme nts AMYLASE (test code = 10A) 65 U/L 28-100 LIPASE (test code = 60A) 89 IU/L 73-393 COMPREHENSIVE METABOLIC ROSS 2019-05-15 07:09:00* Test Item Value Reference Range Interpretation Comme nts GLUCOSE (test code = 06D) 99 mg/dL 75-100 SODIUM (test code = 01A) 140 mmol/L 136-145 POTASSIUM (test code = 01B) 3.6 mmol/L 3.6-5.1 CHLORIDE (test code = 04A) 106 mmol/L 98-107 CO2 (test code = 02A) 27 mmol/L 22-32 ANION GAP (test code = ANG) 10.6 mmol/L BUN (test code = 05D) 10 mg/dL 7-18 CREATININE (test code = 03E) 0.7 mg/dL 0.4-1.1 BUN/CREA (test code = BCR) 15 12-20 CALCIUM (test code = 09D) 9.7 mg/dL 8.3-9.5 H BILI TOTAL (test code = 11A) 0.2 mg/dL 0.2-1.0 PROTEIN (test code = 07D) 8.2 g/dL 6.4-8.2 ALBUMIN (test code = 08D) 4.1 g/dL 3.5-4.8 GLOBULIN (test code = GLB) 4.1 g/dL 1.5-3.8 H ALB/GLOB (test code = AGRR) 1.0 1.0-2.6 ALK PHOS (test code = 35A) 77 IU/L 42-121 AST (test code = 30A) 15 IU/L <=42 ALT (test code = 31A) 24 IU/L <=78 URINALYSIS 2019-05-15 07:03:00* Test Item Value Reference Range Interpretation Comme nts COLOR (test code = COLU) YELLOW YELLOW CLARITY (test code = CLA) CLEAR CLEAR GLUCOSE UR (test code = UA GLUCOSE) NEGATIVE NEGATIVE BILI UR (test code = BILE) NEGATIVE NEGATIVE KETONES UR (test code = FRANCIE) NEGATIVE NEGATIVE SP GRAVITY (test code = SPGR) 1.025 1.005-1.030 PH UR (test code = PH) 6.0 4.5-8.0 PROTEIN UR (test code = PU) NEGATIVE NEGATIVE UROBIL UR (test code = UROQ) 0.2 EU/dL 0.2-1.0 NITRITE UR (test code = NITRITE) NEGATIVE NEGATIVE BLOOD UR (test code = UA BLOOD) NEGATIVE NEGATIVE LEUK ES UR (test code = LEUK) NEGATIVE NEGATIVE AUAM (test code = WAUAM) NO NO SERUM MONOCLONAL 2019-05-15 07:03:00* Test Item Value Reference Range Interpretation Comme nts PREG SRM (test code = PGS) NEGATIVE NEGATIVE CBC (INCLUDES AUTOMATED DIFFERENTIAL)*[id number] 06:56:00* Test Item Value Reference Range Interpretation Comme nts WBC (test code = WBC) 8.5 10\S\3/uL 4.5-13.0 RBC (test code = RBC) 4.26 10\S\6/uL 4.30-5.70 L HGB (test code = HBG) 12.7 g/dL 12.0-15.5 HCT (test code = HCT) 38.5 % 35.0-44.0 MCV (test code = MCV) 90.4 fL 81.0-99.0 MCH (test code = MCH) 29.8 pg 27.0-31.0 MCHC (test code = MCHC) 33.0 g/dL 32.0-36.0 RDW (test code = RDW) 11.9 % 11.5-14.5 PLT (test code = PLT) 352 10\S\3/uL 130-400 MPV (test code = MPV) 9.8 fL 9.4-12.4 NEUTROP # (test code = NE#) 3.4 10\S\3/uL 1.6-8.0 LYMPH # (test code = LY#) 4.2 10\S\3/uL 1.1-3.5 H MONOCYTE # (test code = MO#) 0.5 10\S\3/uL 0.0-1.1 EOSINOPH # (test code = EO#) 0.3 10\S\3/uL 0.0-0.7 BASOPHIL # (test code = BA#) 0.0 10\S\3/uL 0.0-0.3 IG # (test code = IG#) 0.01 10\S\3/uL 0.00-0.06 NRBC # (test code = NRBC#) 0.00 10\S\3/uL 0.00-0.01 NEUTROPH % (test code = NE%) 40.1 % 35.0-73.0 LYMPH % (test code = LY%) 49.5 % 20.0-55.0 MONO % (test code = MO%) 6.2 % 2.5-10.0 EOSINOPH % (test code = EO%) 3.6 % 0.0-5.0 BASOPHIL % (test code = BA%) 0.5 % 0.0-2.0 IG % (test code = IG%) 0.1 % 0.0-0.8 NRBC% (test code = NRBC%) 0.0 % 0.0-0.2 MANDIFF (test code = WMDIFF) NO NO RBC MORPH (test code = WRBCMOR) NORMAL BLOOD [id number] 08:44:00* Test Item Value Reference Range Interpretation Comme nts Culture Observations (test code = COB1) NO GROWTH AFTER 5 DAYS PRO TIME AND [id number] 10:31:00* Test Item Value Reference Range Interpretation Comme nts PT (test code = TT) 12.9 s 9.8-13.6 INR (test code = INR) 1.2 INRH (test code = INRH) SUGGESTED THERAPEUTIC RANGE FOR INR: 2.5 - 3.5 For Patients with Prosthetic Valves or Patients with recurrent Thromboembolic Events 2.0 - 3.0 For Most Other Applications PTT (test code = PTT) 31.3 s 20.2-38.0 PTTH (test code = PTTH) To monitor the effectiveness of heparin, we offer the Anti-Xa (Heparin Assay). It can be used for either unfractionated or LMW Heparin. Order Code is ANTI-XA BRAIN NATRIURETIC [id number] 10:27:00* Test Item Value Reference Range Interpretation Comme nts proBNP (test code = PBNP) 6 pg/mL 0-125 CT ABDOMEN AND PELVIS WITH [id number] 10:19:35Exam: CT abdomen and pelvis with contrast.Location: D4.History: abd and flank painTechnique: Enhanced spiral slices were taken from the domes of the diaphragm,through the pubic symphysis. Coronal reformations were performed. 100 cc ofOmnipaque were used. Creatinine: 0.5. One or more of the following radiationdose reduction techniques was used: automated exposure control, adjustment ofmA and/or KVaccording to patient size, and/or utilization of iterativereconstruction technique.Findings:The liver is of normal, homogeneous density. No mass is seen. The hepatic andportal veins are patent. The intra-and extrahepatic biliary tree is normal. Thegallbladder is unremarkable. No pericholecystic fluid or wall thickening ispresent.The pancreas is normal. The pancreatic duct is normal in caliber. The spleenand adrenal glands are normal in size and shape.The kidneys are unremarkable. No nephrolithiasis, perinephric fluid collectionsor hydronephrosis is seen.The large and small intestine are normal in caliber. The appendix is normal. Noinflammatory change is seen.No lymphadenopathy or free fluidis found in the abdomen or the pelvis.The pelvic structures are unremarkable.The lung bases are clear.No incidental abdominal findings are seen.Impression:Unremarkable exam.AMYLASE AND [id number] 09:46:00* Test Item Value Reference Range Interpretation Comme nts AMYLASE (test code = 10A) 50 U/L 28-100 LIPASE (test code = 60A) 87 IU/L 73-393 COMPREHENSIVE METABOLIC [id number] 09:46:00* Test Item Value Reference Range Interpretation Comme nts GLUCOSE (test code = 06D) 87 mg/dL 75-100 SODIUM (test code = 01A) 136 mmol/L 136-145 POTASSIUM (test code = 01B) 3.6 mmol/L 3.6-5.1 CHLORIDE (test code = 04A) 101 mmol/L 98-107 CO2 (test code = 02A) 27 mmol/L 22-32 ANION GAP (test code = ANG) 11.6 mmol/L BUN (test code = 05D) 9 mg/dL 7-18 CREATININE (test code = 03E) 0.5 mg/dL 0.4-1.1 BUN/CREA (test code = BCR) 17 12-20 CALCIUM (test code = 09D) 9.5 mg/dL 8.3-9.5 BILI TOTAL (test code = 11A) 0.5 mg/dL 0.2-1.0 PROTEIN (test code = 07D) 8.7 g/dL 6.4-8.2 H ALBUMIN (test code = 08D) 4.1 g/dL 3.5-4.8 GLOBULIN (test code = GLB) 4.6 g/dL 1.5-3.8 H ALB/GLOB (test code = AGRR) 0.9 1.0-2.6 L ALK PHOS (test code = 35A) 95 IU/L 42-121 AST (test code = 30A) 15 IU/L <=42 ALT (test code = 31A) 15 IU/L <=78 CBC (INCLUDES AUTOMATED DIFFERENTIAL)2017-08-12 09:41:00* Test Item Value Reference Range Interpretation Comme nts WBC (test code = WBC) 20.7 10\S\3/uL 4.5-13.0 H RBC (test code = RBC) 4.21 10\S\6/uL 4.30-5.70 L HGB (test code = HBG) 12.3 g/dL 12.0-15.5 HCT (test code = HCT) 36.0 % 35.0-44.0 MCV (test code = MCV) 85.5 fL 81.0-99.0 MCH (test code = MCH) 29.2 pg 27.0-31.0 MCHC (test code = MCHC) 34.2 g/dL 32.0-36.0 RDW (test code = RDW) 12.6 % 11.5-14.5 PLT (test code = PLT) 336 10\S\3/uL 130-400 MPV (test code = MPV) 9.8 fL 9.4-12.4 NEUTROP # (test code = NE#) 16.7 10\S\3/uL 1.6-8.0 H LYMPH # (test code = LY#) 2.4 10\S\3/uL 1.1-3.5 MONOCYTE # (test code = MO#) 1.1 10\S\3/uL 0.0-1.1 EOSINOPH # (test code = EO#) 0.4 10\S\3/uL 0.0-0.7 BASOPHIL # (test code = BA#) 0.1 10\S\3/uL 0.0-0.3 IG # (test code = IG#) 0.06 10\S\3/uL 0.00-0.06 NRBC # (test code = NRBC#) 0.00 10\S\3/uL 0.00-0.01 NEUTROPH % (test code = NE%) 80.6 % 35.0-73.0 H LYMPH % (test code = LY%) 11.7 % 20.0-55.0 L MONO % (test code = MO%) 5.2 % 2.5-10.0 EOSINOPH % (test code = EO%) 1.9 % 0.0-5.0 BASOPHIL % (test code = BA%) 0.3 % 0.0-2.0 IG % (test code = IG%) 0.3 % 0.0-0.8 NRBC% (test code = NRBC%) 0.0 % 0.0-0.2 MANDIFF (test code = MDIFF) NO NO RBC MORPH (test code = RBCMOR) NORMAL SERUM [id number] 09:41:00* Test Item Value Reference Range Interpretation Comme nts PREG SRM (test code = PGS) NEGATIVE NEGATIVE URINALYSIS WITH [id number] 09:40:00* Test Item Value Reference Range Interpretation Comme nts COLOR (test code = COLU) YELLOW YELLOW CLARITY (test code = CLA) SLT HAZY CLEAR A GLUCOSE UR (test code = UA GLUCOSE) NEGATIVE NEGATIVE BILI UR (test code = BILE) NEGATIVE NEGATIVE KETONES UR (test code = FRANCIE) NEGATIVE NEGATIVE SP GRAVITY (test code = SPGR) 1.019 1.005-1.030 PH UR (test code = PH) 5.5 4.5-8.0 PROTEIN UR (test code = PU) NEGATIVE NEGATIVE UROBIL UR (test code = UROQ) 0.2 EU/dL 0.2-1.0 NITRITE UR (test code = NITRITE) NEGATIVE NEGATIVE BLOOD UR (test code = UA BLOOD) NEGATIVE NEGATIVE LEUK ES UR (test code = LEUK) 1+ NEGATIVE A WBC UR (test code = UWBC) 2 /HPF 0-5 RBC UR (test code = URBC) 0 /HPF 0-2 EPITH UR (test code = UEPC) FEW /LPF FEW BACTERIA UR (test code = UBACT) FEW /HPF NONE A CAST UR (test code = CAST) /LPF NONE CRYSTAL UR (test code = CRYU) / LPF NONE MUCUS UR (test code = MUC) / HPF NONE AMORPH UR (test code = AISHA) / HPF NONE TRICH UR (test code = UTRICH) /HPF NONE YEAST UR (test code = UY) /HPF NONE SPERM UR (test code = USPERM) /HPF NONE
[2025-03-30] MEDS ORDERED: ONDANSETRON 4 MG/2 ML VIAL ONE (13:14)
[2025-03-30] MEDS ORDERED: NA CHLORIDE 0.9% 1,000 ML ONE (13:14)
[2025-03-30] MEDS ORDERED: MORPHINE 4 MG/ML SYR ONE (13:14)
[2025-03-30 13:21] LABS: Absolute Lymphocytes (CBC) 2.5 K/uL (0.7-4.9); Hematocrit 35.7 % (36.0-45.0); Hemoglobin 11.9 g/dL (12.0-15.0); MCH 29.3 pg (27.0-35.0); MCHC 33.4 g/dL (32.0-36.0); MCV 87.6 fL (80-100); MPV 8.3 fL (7.6-11.3); Nucleated RBC Absolute Count 0.0 (0-0); Nucleated Red Blood Cells % 0.0 % (0-0); RBC Red Blood Cell Count 4.08 M/uL (3.86-4.86); White Blood Count 17.80 thou/uL (4.3-10.9)
[2025-03-30 13:31] LABS: Sqamous Epithelial 20-50 /HPF (None Seen); Urine Culture Reflex Order NOT NEEDED; Urine Microscopic Reflex YN ORDER UMIC
[2025-03-30] MEDS ORDERED: DIPHENHYDRAMINE 50 MG/ML VIAL ONE (13:34)
[2025-03-30 13:40] LABS: ALT/SGPT 40.0 U/L (13-56); Albumin 3.9 g/dL (3.4-5.0); Albumin/Globulin Ratio 0.9 (1.1-1.8); Alkaline Phosphatase 74.0 U/L (45-117); Anion Gap 12.0 mEq/L (5.0-15.0); BUN Blood Urea Nitrogen 11.0 mg/dL (7-18); Globulin 4.4 g/dL (2.3-3.5); Glucose Level 134.0 mg/dL (74-106); Lipase 25.0 U/L (13-75)
[2025-03-30 13:51] LABS: AST/SGOT 39.0 U/L (15-37); Potassium 5.0 mEq/L (3.5-5.1)
--- NOTE | 2025-03-30 14:46 | RAD REPORT ---
EXAMINATION: CT ABDOMEN AND PELVIS WITH CONTRAST CLINICAL INDICATION: Abdominal pain TECHNIQUE: CT abdomen and pelvis was performed, after the administration of 100 cc Isovue-300.. Sagit ryan and coronal reconstructions were obtained. One or more of the following dose reduction techniques were used: Automated exposure control, adjustment of the mA and kV according to patient si ze, and iterative reconstruction. Unless otherwise specified, incidental findings do not require dedicated imaging follow-up. [id number]. Oral contrast was not given which limits evaluation of bowel and appendix. COMPARISON: .None FINDINGS: Mild left hydronephrosis. Delay in concentration of contrast left kidney. Left ureter dilated. 4 mm c alculus distal left ureter. Liver, spleen, pancreas, adrenals and right kidney appear unremarkable 2 cm right ovarian simple cyst. No follow-up imaging recommended. No evidence of diverticulitis. Normal appendix : IMPRESSION: 4 mm calculus distal left ureter results in mild left hydronephrosis
[2025-03-30] MEDS ORDERED: TAMSULOSIN 0.4 MG SR CAP ONE (14:55)
[2025-03-30] MEDS ORDERED: Magnesium Sulfate 2gm IVPB 2 G/50 ML BAG IV ONE (14:55)
[2025-03-30] MEDS ORDERED: KETOROLAC 30 MG/ML INJ ONE (14:55)
--- NOTE | 2025-03-30 15:45 | EDPHYS ---
Physician Documentation [facility] Name: Nelida Masters Age: 24 yrs Sex: Female : 2000 Arrival Date: 03/30/2025 Time: 11:50 Bed 16 Private MD: ED Physician Lucille Gaston HPI: 03/30 12:11 This 24 yrs old Female presents to ER via Ambulatory with complaints of sb4 Abdominal Pain, Nausea/Vomiting. 12:11 Patient reports lower abdominal pain and pelvic pain x 3 days, got worse today. sb4 Believes she may have a UTI. Does endorse prior UTIs. Took 2 ibuprofen this morning without any improvement in symptoms. Denies any fever or chills. Denies any flank pain. 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 - Infectious Disease History:: Denies. - Social history:: Smoking status: Reported history of juuling and/or vaping. ROS: 12:11 Constitutional: Negative for fever, chills, and weight loss, sb4 12:11 Abdomen/GI: Positive for abdominal pain, 12:11 : Positive for urinary symptoms, pelvic pain, 12:11 All other systems are negative, Exam: 12:11 Head/Face: Normocephalic, atraumatic. Eyes: Extra-ocular motions intact. Periorbital sb4 areas with no swelling, redness, or edema. ENT: Mucous membranes moist. Respiratory: No increased work of breathing, no retractions or nasal flaring. Skin: Warm, dry with normal turgor. Normal color with no rashes, no lesions, and no evidence of cellulitis. 12:11 Constitutional: The patient appears alert, awake, restless, uncomfortable, 12:11 Abdomen/GI: Inspection: abdomen appears normal, Bowel sounds: normal, Palpation: nontender, moderate abdominal tenderness, in the suprapubic area, Vital Signs: 12:07 Pulse 82; Resp 18; Temp 98.2(O); Pulse Ox 98% ; Weight 58.97 kg; Height 4 ft. 11 in. ; ar8 Pain 10/10; 13:23 BP 120 / 79; Pulse 77; Resp 15; Pulse Ox 100% ; Pain 8/10; jl7 14:38 BP 125 / 81; Pulse 74; Resp 15; Pulse Ox 98% ; jl7 12:07 Body Mass Index 26.26 (58.97 kg, 149.86 cm) ar8 12:07 Pain Scale: Adult ar8 13:23 Pain Scale: Adult jl7 MDM: 11:53 Medical Screening Exam initiated sb4 12:13 Differential diagnosis: Dysmenorrhea, non-specific abd pain, Pyelonephritis, urinary sb4 tract infection, IUP. 15:21 Independent interpretation of the following test(s) in the Emergency Department CT sb4 Scan: My interpretation is My interpretation of the CT abdomen pelvis with IV contrast is ureterolithiasis at the distal left ureter. Counseling: I had a detailed discussion with the patient and/or guardian regarding the historical points, exam findings, and any diagnostic results supporting the discharge/admit diagnosis, lab results, radiology results, the need for outpatient follow up, a urologist, to return to the emergency department if symptoms worsen or persist or if there are any questions or concerns that arise at home. 15:44 Data reviewed: vital signs, nurses notes, lab test result(s), radiologic studies, and sb4 as a result, I will discharge patient. 15:45 ED course: Patient states that her pain has completely resolved. I suspect that the sb4 kidney stone is passed into her bladder. Will safely discharge home at this time with outpatient urology follow-up. She understands and is in agreement plan. She stable for discharge at home. 03/30 12:11 Order name: CBC with Diff; Complete Time: 13:23 sb4 03/30 12:11 Order name: CMP; Complete Time: 13:52 sb4 03/30 12:11 Order name: Lipase; Complete Time: 13:52 sb4 03/30 12:11 Order name: Test, Urine; Complete Time: 13:34 sb4 03/30 12:11 Order name: UA Rfx Seven Cult if indicated; Complete Time: 13:34 sb4 03/30 13:27 Order name: CT Abd/Pelvis - IV Contrast Only; Complete Time: 14:47 sb4 03/30 12:11 Order name: IV Saline Lock; Complete Time: 13:19 sb4 03/30 12:11 Order name: Labs collected and sent; Complete Time: 13:19 sb4 Administered Medications: 13:15 Drug: Ondansetron IVP 4 mg IVP once; over 2 minutes Route: IVP; Site: left antecubital; jl7 14:04 Follow up: Response: No adverse reaction kc6 13:15 Drug: morphine IVP or IV 4 mg IVP once over 4 mins Route: IVP; Infused Over: 4 mins; jl7 Site: left antecubital; 14:04 Follow up: Response: No adverse reaction; Pain is decreased; RASS: Drowsy (-1) kc6 13:15 Drug: NS 0.9% IV 1000 ml IV at 1 bolus Per protocol; to be given as a bolus over 60 jl7 minutes Route: IV; Rate: 1 bolus; Site: left antecubital; 15:32 Follow up: Response: No adverse reaction; IV Status: Completed infusion; IV Intake: kc6 1000ml 13:43 Drug: diphenhydrAMINE IVP 25 mg IVP once Route: IVP; Site: left antecubital; jl7 14:03 Follow up: Response: No adverse reaction; RASS: Drowsy (-1) kc6 13:44 Drug: Droperidol IVP 2.5 mg IVP once Route: IVP; Site: left antecubital; jl7 14:04 Follow up: Response: No adverse reaction; Marked relief of symptoms; Nausea is kc6 decreased; Vomiting decreased 15:02 Drug: Ketorolac IVP 15 mg IVP once Route: IVP; Site: left antecubital; kc6 15:32 Follow up: Response: No adverse reaction; Pain is decreased kc6 15:02 Drug: Flomax PO 0.4 mg PO once Route: PO; kc6 15:32 Follow up: Response: No adverse reaction kc6 15:02 Drug: Magnesium Sulfate IVPB 2 grams IVPB once over 30 mins Route: IVPB; Infused Over: kc6 30 mins; Site: left antecubital; 15:43 Not Given (Other Intervention Used): hydromorphone1 mg IVP once kc6 Disposition Summary: 03/30/25 15:44 Discharge Ordered Notes: Location: Home sb4 Problem: new sb4 Symptoms: have improved sb4 Condition: Stable sb4 Diagnosis - Calculus of kidney with calculus of ureter - left, 4 mm sb4 Followup: sb4 - With: Chad Huggins MD - When: As needed - Reason: Recheck today's complaints, Re-evaluation by your physician Discharge Instructions: - Discharge Summary Sheet kc6 - Kidney Stones sb4 Forms: - Work release form kc6 - Patient Portal Instructions sb4 - Leadership Thank You Letter sb4 Prescriptions: - ketorolac 10 mg Oral tablet - take 1 tablet ORAL route every 6 hours as needed for pain; maximum total sb4 duration of 5 days from all oral, intranasal, or parenteral formulations; 10 tablet; Refills: 0, Product Selection Permitted - tamsulosin 0.4 mg Oral capsule - take 1 capsule ORAL route daily; 12 capsule; Refills: 0, Product Selection sb4 Permitted Signatures: Dispatcher [employer] Deepak Duffy RN RN jl7 Delores Esqueda RN RN kc6 Maritza New PAAdeliaC PAYuri sb4 Remington Armendariz RN RN ar8 Corrections: (The following items were deleted from the chart) 12:12 12:11 CBC+H.LAB.BRZ ordered. EDMS EDMS 12:12 12:11 COMPREHENSIVE METABOLIC PANEL+C.LAB.BRZ ordered. EDMS EDMS 12:12 12:11 LIPASE+C.LAB.BRZ ordered. EDMS EDMS 12:12 12:11 Test, Urine+UC.LAB.BRZ ordered. EDMS EDMS 12:12 12:11 UA Rfx Seven Cult if indicated+U.LAB.BRZ ordered. EDMS EDMS
--- NOTE | 2025-03-30 15:45 | ER ---
Nurse's Notes [facility] Name: Nelida Masters Age: 24 yrs Sex: Female : 2000 Arrival Date: 03/30/2025 Time: 11:50 Bed 16 Private MD: Diagnosis: Calculus of kidney with calculus of ureter-left, 4 mm Presentation: 03/30 12:07 Chief complaint: Patient states: C/O lower abdominal/pelvic pain, pain with urination, ar8 N/V x3 days. Coronavirus screen: At this time, the client does not indicate any symptoms associated with coronavirus-19. Ebola Screen: No symptoms or risks identified at this time. Initial Sepsis Screen: Does the patient meet any 2 criteria? No. Patient's initial sepsis screen is negative. Does the patient have a suspected source of infection? No. Patient's initial sepsis screen is negative. Risk Assessment: Do you want to hurt yourself or someone else? Patient reports no desire to harm self or others. Onset of symptoms was March 27, 2025. 12:07 Method Of Arrival: Ambulatory ar8 12:07 Acuity: NUZHAT 3 ar8 Triage Assessment: 12:10 General: Appears uncomfortable, Behavior is restless. Pain: Complains of pain in ar8 suprapubic area, right lower quadrant and left lower quadrant. GI: Reports lower abdominal pain, nausea, vomiting. 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 - Infectious Disease History:: Denies. - Social history:: Smoking status: Reported history of juuling and/or vaping. Screenin:23 [facility] ED Fall Risk Assessment (Adult) History of falling in the last 3 months, jl7 including since admission No falls in past 3 months (0 pts) Confusion or Disorientation No (0 pts) Intoxicated or Sedated No (0 pts) Impaired Gait No (0 pts) Mobility Assist Device Used No (0 pt) Altered Elimination No (0 pt) Score/Fall Risk Level 0 - 2 = Low Risk Oriented to surroundings, Maintained a safe environment. Abuse screen: Denies threats or abuse. Denies injuries from another. Nutritional screening: No deficits noted. Tuberculosis screening: No symptoms or risk factors identified. Assessment: 13:23 General: Appears in no apparent distress. uncomfortable, ill, Behavior is cooperative, jl7 anxious, restless. Pain: Complains of pain in abdomen and suprapubic area Pain currently is 8 out of 10 on a pain scale. Neuro: Miller Agitation-Sedation Scale (RASS): +1 Restless Level of Consciousness is awake, alert, obeys commands, Oriented to person, place, time, situation. Cardiovascular: Patient's skin is warm and dry. Respiratory: Airway is patent Respiratory effort is even, unlabored, Respiratory pattern is regular, symmetrical. GI: Abdomen is non-distended, Abd is soft Abdomen is tender to palpation Guarding noted Reports nausea, vomiting. Derm: Skin is pink, warm \T\ dry. 14:00 Reassessment: pt laying in bed with eyes closed, respirations even and unlabored, no jl7 signs of distress noted. Vital Signs: 12:07 Pulse 82; Resp 18; Temp 98.2(O); Pulse Ox 98% ; Weight 58.97 kg; Height 4 ft. 11 in. ; ar8 Pain 10/10; 13:23 BP 120 / 79; Pulse 77; Resp 15; Pulse Ox 100% ; Pain 8/10; jl7 14:38 BP 125 / 81; Pulse 74; Resp 15; Pulse Ox 98% ; jl7 12:07 Body Mass Index 26.26 (58.97 kg, 149.86 cm) ar8 12:07 Pain Scale: Adult ar8 13:23 Pain Scale: Adult jl7 ED Course: 11:51 Patient arrived in ED. ts1 11:53 Maritza New PA-C is PHCP. sb4 11:53 Lucille Gaston MD is Attending Physician. sb4 12:10 Triage completed. ar8 12:10 Arm band placed on right wrist. ar8 13:12 Deepak Velasquez, ABAD is Primary Nurse. jl7 13:20 Inserted saline lock: 20 gauge in left antecubital area, using aseptic technique. Blood ts3 collected. Flushed with 10 mL NS. 13:20 Initial lab(s) drawn, by operations label clerk, sent to lab. ts3 13:21 Urine collected: clean catch specimen, sent to lab. ts3 13:23 Patient has correct armband on for positive identification. Provided Education on: use jl7 of call galvan. 13:50 Pulse ox on. NIBP on. Door closed. Noise minimized. Lights dimmed. Warm blanket given. kc6 Pillow given. Verbal reassurance given. 13:50 Report received from Deepak Velasquez RN. kc6 13:50 Patient maintains SpO2 saturation greater than 95% on room air. kc6 14:34 CT Abd/Pelvis - IV Contrast Only In Process Unspecified. EDMS 15:44 Chad Huggins MD is Referral Physician. sb4 16:12 No provider procedures requiring assistance completed. IV discontinued, intact, kc6 bleeding controlled, No redness/swelling at site. Pressure dressing applied. Administered Medications: 13:15 Drug: Ondansetron IVP 4 mg IVP once; over 2 minutes Route: IVP; Site: left antecubital; jl7 14:04 Follow up: Response: No adverse reaction kc6 13:15 Drug: morphine IVP or IV 4 mg IVP once over 4 mins Route: IVP; Infused Over: 4 mins; jl7 Site: left antecubital; 14:04 Follow up: Response: No adverse reaction; Pain is decreased; RASS: Drowsy (-1) kc6 13:15 Drug: NS 0.9% IV 1000 ml IV at 1 bolus Per protocol; to be given as a bolus over 60 jl7 minutes Route: IV; Rate: 1 bolus; Site: left antecubital; 15:32 Follow up: Response: No adverse reaction; IV Status: Completed infusion; IV Intake: kc6 1000ml 13:43 Drug: diphenhydrAMINE IVP 25 mg IVP once Route: IVP; Site: left antecubital; jl7 14:03 Follow up: Response: No adverse reaction; RASS: Drowsy (-1) kc6 13:44 Drug: Droperidol IVP 2.5 mg IVP once Route: IVP; Site: left antecubital; jl7 14:04 Follow up: Response: No adverse reaction; Marked relief of symptoms; Nausea is kc6 decreased; Vomiting decreased 15:02 Drug: Ketorolac IVP 15 mg IVP once Route: IVP; Site: left antecubital; kc6 15:32 Follow up: Response: No adverse reaction; Pain is decreased kc6 15:02 Drug: Flomax PO 0.4 mg PO once Route: PO; kc6 15:32 Follow up: Response: No adverse reaction kc6 15:02 Drug: Magnesium Sulfate IVPB 2 grams IVPB once over 30 mins Route: IVPB; Infused Over: kc6 30 mins; Site: left antecubital; 15:43 Not Given (Other Intervention Used): hydromorphone1 mg IVP once kc6 Medication: 13:23 VIS not applicable for this client. jl7 Intake: 15:32 IV: 1000ml; Total: 1000ml. kc6 Outcome: 15:44 Discharge ordered by MD. sb4 16:12 Discharged to home ambulatory, kc6 16:12 Condition: improved 16:12 Discharge instructions given to patient, Instructed on discharge instructions, follow up and referral plans. medication usage, Demonstrated understanding of instructions, follow-up care, medications, Prescriptions given X 2, 16:12 Patient left the ED. kc6 Signatures: Dispatcher [employer] EDDeepak Rodas RN RN jl7 Delores Esqueda RN RN kc6 Maritza New, PA-C PA-C [email or web address] Ernestine Harris PAS PAS ts1 Jada Fofana ts3 Remington Armendariz, RN RN ar8
[2025-03-30 22:56] VITALS: TEMP 98.2
[2025-03-30 23:03] VITALS: BP 125/81; O2SAT 98
== END 2025-03-30 16:12 | disposition home or self-care (01) ==
LOC: ER 11:50
DX: N20.2 Calculus of kidney with calculus of ureter (principal)
CPT/HCPCS: 36415; 74177; 80053; 81001; 81025; 83690; 85025; 96361; 96374; 96375; 99284; J1200; J1790; J2405; J3475; J7030; Q9967